=== PATIENT | female | born 1965 | race Caucasian/White ===

== ENCOUNTER 2019-03-06 22:50 | Emergency (ER) | payer MEDICARE ==
[2019-03-06 23:29] VITALS: O2SAT 99
[2019-03-06] MEDS ORDERED: Adacel Vial IM ONE (23:39)
--- NOTE | 2019-03-06 23:42 | ERPHSYRPT ---
- History of Present Illness Time Seen by Provider: 03/06/19 23:37 Source: patient, family Exam Limitations: no limitations Physician History: pt sustained clean lac to ext srface prox thumb on left sharpening knife - has fulll ROM op ext flex of thumb against resistance and with probing no visible tendon damage or FB - irrigated - neurovasc also intact. nontender underlying bone Timing/Duration: today Quality: painful Severity: moderate Location: hands Possible Causes: other (lac) Associated Symptoms: denies symptoms Allergies/Adverse Reactions: methocarbamol Allergy (Mild, Verified 11/21/11 20:33) pregabalin [From Lyrica] Adverse Reaction (Intermediate, Verified 03/06/19 23:03 ) Swelling of Joints Home Medications: Mirabegron [Myrbetriq] 25 mg PO BID 03/06/19 [History] Hx Tetanus, Diphtheria Vaccination/Date Given: Yes Hx Influenza Vaccination/Date Given: No Hx Pneumococcal Vaccination/Date Given: No - Review of Systems Constitutional: No Fever, No Chills Eyes: No Symptoms Ears, Nose, & Throat: No Symptoms Respiratory: No Cough, No Dyspnea Cardiac: No Chest Pain, No Edema, No Syncope Abdominal/Gastrointestinal: No Abdominal Pain, No Nausea, No Vomiting, No Diarrhea Genitourinary Symptoms: No Dysuria Musculoskeletal: No Back Pain, No Neck Pain Skin: Other (lac left base thumb), No Rash Neurological: No Dizziness, No Focal Weakness, No Sensory Changes Psychological: No Symptoms Endocrine: No Symptoms Hematologic/Lymphatic: No Symptoms Immunological/Allergic: No Symptoms All Other Systems: Reviewed and Negative - Past Medical History Pertinent Past Medical History: Yes Other Medical History: Chronic back and neck pain, hiatal hernia, sinus polyp, stress incontinence - Past Surgical History Past Surgical History: Yes Gastrointestinal: Hemorrhoidectomy Female Surgical History: Hysterectomy, Lumpectomy Other Surgical History: Neck, back, sinus polyp removal, right wrist - Social History Smoking Status: Current every day smoker Exposure to second hand smoke: Yes Drug Use: none Patient Lives Alone: No - Nursing Vital Signs Nursing Vital Signs: Initial Vital Signs Temperature 98.2 F 03/06/19 22:51 Pulse Rate 88 03/06/19 22:51 Respiratory Rate 18 03/06/19 22:51 Blood Pressure 125/73 03/06/19 22:51 O2 Sat by Pulse Oximetry 99 03/06/19 22:51 Pain Scale Pain Intensity 10 - Physical Exam General Appearance: no apparent distress, alert Eye Exam: PERRL/EOMI, eyes nml inspection Ears, Nose, Throat Exam: normal ENT inspection, pharynx normal, moist mucous membranes Neck Exam: normal inspection, non-tender, supple, full range of motion Respiratory Exam: normal breath sounds, lungs clear, No respiratory distress Cardiovascular Exam: regular rate/rhythm, normal heart sounds Gastrointestinal/Abdomen Exam: soft, mass, No tenderness Back Exam: normal inspection, normal range of motion, No CVA tenderness, No vertebral tenderness Extremity Exam: normal range of motion, other (lac ext ensor base left thumb) Neurologic Exam: alert, oriented x 3, cooperative, normal mood/affect, sensation nml, No motor deficits Skin Exam: normal color, warm, dry SpO2 Interpretation: normal SpO2: 99 Procedures - Laceration/Wound Repair Left Hand Wound Location: Left, hand Wound Length (cm): 6 Wound's Depth, Shape: into muscle, linear, contused tissue Wound Explored: no foreign body noted Irrigated: Yes (100 cc NS) Hibiclens Prep: Yes Anesthesia: local, 1% Lidocaine Volume Anesthetic (ccs): 5 Wound Debrided: minimal Wound Repaired With: sutures Suture Size/Type: 4-0, ethilon Number of Sutures: 7 Layer Closure?: No Sterile Dressing Applied?: Yes Splint Applied?: No Sling Applied?: No - Course Nursing assessment & vital signs reviewed: Yes - Progress Progress: improved, re-examined Counseled pt/family regarding: diagnosis, need for follow-up - Departure Departure Disposition: Home Clinical Impression: laceration base left thumb extensor side Condition: Good Critical Care Time: No Referrals: FABY FISH [Primary Care Provider] - Instructions: Wound Care (DC), Laceration Repair With Stitches (DC) Additional Instructions: stitches may be removed in [address] return meantime if increased pain drainage redness or other concerns. cuts in this location may frequently have undetected injury to the tendons even though not first detected and with normal function/motion, and can also happen during healing by the scar tissue , so any delayed problems be sure to have followed up this may include tendon or nerve injuries not originally apparent. Prescriptions: Mupirocin [Bactroban OINTMENT] 22 gm TP BID #1 tube
[2019-03-06 23:55] VITALS: BP 127/79; PULSE 83
[2019-03-06] MEDS ORDERED: BACIGUENT PACKET TP ONE (23:55)
[2019-03-07] MEDS ORDERED: Adacel Vial IM ONE (00:07)
== END 2019-03-07 00:04 | disposition home or self-care (01) ==
LOC: ED 22:50
DX: S61.012A Laceration without foreign body of left thumb without damage to nail, initial encounter (principal); W26.0XXA Contact with knife, initial encounter; Y93.9 Activity, unspecified
CPT/HCPCS: 12002; 90471; 90715; 99283; A9270-GY